=== PATIENT | female | born 1975 | race Caucasian/White ===

== ENCOUNTER → 2017-03-25 | Outpatient (CLI) | payer BC | END | disposition home or self-care (01) | LOC: CDC 14:09 | DX: M67.431 Ganglion, right wrist (principal) | CPT/HCPCS: 93000 ==

== ENCOUNTER 2017-08-01 09:38 | Emergency (ER) | payer BC ==
[~2017-08-01] VITALS: Ht 162.6 cm; Wt 70.0 kg
[2017-08-01 10:27] LABS: HEMATOCRIT 45.2 % (36.0-46.0); MCHC 34.5 G/DL (30.0-36.0); MCV 89.7 FL (83-99); MEAN PLAT.VOLUME 9.8 uM^3 (9.5-12.4); PLATELET COUNT 320 K/uL (156-360); RBC DIS.WIDTH-CV 12.1 % (11.8-14.6); RBC DIS.WIDTH-SD 39.9 % (39-53); RED BLOOD COUNT 5.04 M/uL (3.80-5.20)
[2017-08-01 10:39] LABS: CHLORIDE 104 mEq/L (99-109); POTASSIUM 4.6 mEq/L (3.7-5.4); SODIUM 139 mEq/L (136-147)
[2017-08-01 10:41] LABS: GLUCOSE 94 mg/dL (70-99)
[2017-08-01 10:42] LABS: ANION GAP 11 MEQ/L (2-14)
[2017-08-01 10:44] LABS: GFR ESTIMATE (CALCULATED) > 59 mL/min/
[2017-08-01 10:45] LABS: UREA NITROGEN (BUN) 12 mg/dL (9-23)
[2017-08-01 10:49] LABS: TROP-I INTERPRETATION NEGATIVE; TROPONIN-I < 0.01 ng/mL (0.0-0.30)
[2017-08-01 12:40] LABS: D-DIMER ELISA < 150.00 ng/mLDDU (<230)
[2017-08-01 13:08] LABS: TOTAL BILIRUBIN 0.4 mg/dL (0.0-1.0)
[2017-08-01 13:09] LABS: ALKALINE PHOSPHATASE 62 IU/L (3-129)
[2017-08-01 13:11] LABS: DIRECT BILIRUBIN 0.1 mg/dL (0.0-0.3)
[2017-08-01 13:12] LABS: LIPASE 18 U/L (1.0-51.0)
[2017-08-01] MEDS ORDERED: ZANTAC300 MG PO (14:06)
[2017-08-01 14:27] VITALS: BP 157/69
== END 2017-08-01 14:28 | disposition home or self-care (01) ==
LOC: EME 09:38
DX: R10.13 Epigastric pain (principal); R06.02 Shortness of breath; K21.9 Gastro-esophageal reflux disease without esophagitis; Z87.442 Personal history of urinary calculi; Z88.2 Allergy status to sulfonamides
CPT/HCPCS: 71020; 80048; 80076; 83690; 84484; 85027; 85379; 93005; 99281; 99285

== ENCOUNTER → 2017-08-25 | Outpatient (CLI) | payer BC ==
[~2017-08-25] MED LIST: ZANTAC300 MG PO
== END | disposition home or self-care (01) ==
LOC: NUC 06:46
DX: R93.2 Abnormal findings on diagnostic imaging of liver and biliary tract (principal)
CPT/HCPCS: 78226; A9537

== ENCOUNTER 2017-09-21 05:31 | Day surgery (SDC) | payer BC ==
[~2017-09-21] VITALS: Ht 162.6 cm; Wt 63.5 kg
[~2017-09-21 05:31] MED LIST changes: +24 HOUR ALLER15.8 ML BOTH NARES; +BENADRYL25 MG PO; +CARAFATE1 GM PO; +LISINOPRIL10 MG PO; +MULTIPLE VITAM1 EACH PO; +PROTONIX40 MG PO; +QVAR 80 MCG IN7.3 GM IH; +RANITIDINE HCL300 MG PO; +ZYRTEC10 M2 PO
[2017-09-21 06:00] VITALS: BP 157/71
[2017-09-21] MEDS ORDERED: NORCO 5/3251 TABLET PO (09:40)
[2017-09-21 12:10] VITALS: BP 132/65
[2017-09-21 13:15] VITALS: BP 140/65
[2017-09-21 17:20] VITALS: BP 154/78
== END 2017-09-21 17:40 | disposition home or self-care (01) ==
LOC: SDC 05:31
PROC: 0UT74ZZ Resection of Bilateral Fallopian Tubes, Percutaneous Endoscopic Approach (ICD-10-PCS; principal; 2017-09-21)
PROC: 0FT44ZZ Resection of Gallbladder, Percutaneous Endoscopic Approach (ICD-10-PCS; principal; 2017-09-21)
PROC: 0UT24ZZ Resection of Bilateral Ovaries, Percutaneous Endoscopic Approach (ICD-10-PCS; principal; 2017-09-21)
DX: K81.1 Chronic cholecystitis (principal); N80.1 Endometriosis of ovary; N73.6 Female pelvic peritoneal adhesions (postinfective); J45.909 Unspecified asthma, uncomplicated; I10 Essential (primary) hypertension; K21.9 Gastro-esophageal reflux disease without esophagitis; Z88.2 Allergy status to sulfonamides
CPT/HCPCS: 88304; 88305; J0131; J0330; J1100; J1170; J2175; J2250; J2310; J2405; J2710; J2765; J3010; S0074